=== PATIENT | female | born 1995 | race African-American/Black ===

== ENCOUNTER 2017-09-17 12:28 | Emergency (ER) | payer MEDICAID ==
[2017-09-17 16:11] LABS: URINE BLOOD (Dip) POC Negative (NEGATIVE); URINE GLUCOSE (Dip) POC Negative (NEGATIVE); URINE KETONES (Dip) POC Negative (NEGATIVE); URINE LEUKOCYTE EST (Dip) POC Negative (NEGATIVE); URINE NITRITE (Dip) POC Negative (NEGATIVE); URINE TOTAL PROTEIN POC Negative (NEGATIVE)
[2017-09-17 16:11] LABS: URINE PH (Dip) POC 8.5 (5.0-8.5)
== END 2017-09-17 17:04 | disposition home or self-care (01) ==
LOC: FTE 12:28
DX: K52.9 Noninfective gastroenteritis and colitis, unspecified (principal)
CPT/HCPCS: 81003; 81025; 99283

== ENCOUNTER 2017-10-01 00:32 | Emergency (ER) | payer MEDICAID ==
[2017-10-01] MEDS: ONDANSETRON (ODT) 4 MG TAB ODT (01:36)
[2017-10-01 01:53] LABS: URINE PH (Dip) POC 6.5 (5.0-8.5)
[2017-10-01 01:53] LABS: URINE BLOOD (Dip) POC Negative (NEGATIVE); URINE GLUCOSE (Dip) POC Negative (NEGATIVE); URINE KETONES (Dip) POC 1+ (NEGATIVE); URINE LEUKOCYTE EST (Dip) POC Negative (NEGATIVE); URINE NITRITE (Dip) POC Negative (NEGATIVE); URINE TOTAL PROTEIN POC Trace (NEGATIVE)
== END 2017-10-01 03:57 | disposition home or self-care (01) ==
LOC: FTE 00:32
DX: R11.11 Vomiting without nausea (principal)
CPT/HCPCS: 81003; 81025; 99283

== ENCOUNTER 2017-12-14 10:11 | Emergency (ER) | payer SELFPAY, MEDICAID | END 2017-12-14 11:30 | disposition home or self-care (01) | LOC: FTE 10:11 | DX: Z48.02 Encounter for removal of sutures (principal) | CPT/HCPCS: 99281 ==

== ENCOUNTER 2018-06-19 10:16 | Emergency (ER) | payer SELFPAY ==
[2018-06-19 11:04] LABS: URINE BLOOD (Dip) POC 2+ (NEGATIVE); URINE GLUCOSE (Dip) POC Negative (NEGATIVE); URINE KETONES (Dip) POC 2+ (NEGATIVE); URINE LEUKOCYTE EST (Dip) POC Negative (NEGATIVE); URINE NITRITE (Dip) POC Negative (NEGATIVE); URINE TOTAL PROTEIN POC 1+ (NEGATIVE)
[2018-06-19 11:04] LABS: URINE PH (Dip) POC 6.5 (5.0-8.5)
[2018-06-19] MEDS: ONDANSETRON (ODT) 4 MG TAB ODT (11:07)
[2018-06-19] MEDS: ACETAMINOPHEN 500 MG TAB PO (11:07)
[2018-06-19] MEDS: SOD CHLORIDE 0.9% 1,000 ML IV (11:07)
[2018-06-19] MEDS: IBUPROFEN 600 MG TAB PO (11:07)
== END 2018-06-19 12:26 | disposition home or self-care (01) ==
LOC: FTE 10:16
DX: J10.1 Influenza due to other identified influenza virus with other respiratory manifestations (principal)
CPT/HCPCS: 71045; 81003; 81025; 87400; 96360; 99284-25

== ENCOUNTER 2018-08-20 19:39 | Emergency (ER) | payer SELFPAY ==
[2018-08-20 22:30] LABS: ADD MAN DIFF? NO
[2018-08-20 22:37] LABS: BASOPHILS % 0.4 % (0.0-2.0); EOSINOPHILS % 0.4 % (0.0-7.0); HEMOGLOBIN 11.2 g/dl (12.0-16.0); LYMPHOCYTES # 2.2 10^3/ul (0.8-2.9); LYMPHOCYTES % 29.9 % (15.0-51.0); MEAN CORPUSCULAR HEMOGLOBIN 30.4 pg (29.0-33.0); MEAN CORPUSCULAR HGB CONC 32.9 g/dl (32.0-37.0); MEAN CORPUSCULAR VOLUME 92.1 fl (82.0-101.0); MEAN PLATELET VOLUME 9.6 fl (7.4-10.4); MONOCYTE # 0.5 10^3/ul (0.3-0.9); MONOCYTES % 7.1 % (0.0-11.0); NEUTROPHIL # 4.7 10^3/ul (1.6-7.5); NEUTROPHILS % 61.9 % (39.0-77.0); PLATELET COUNT 371 10^3/UL (140-415); RED BLOOD COUNT 3.69 10^6/ul (4.20-5.40)
[2018-08-20 22:37] LABS: WHITE BLOOD COUNT 7.5 10^3/ul (4.8-10.8)
[2018-08-20 23:25] LABS: ADD UMIC YES; UR ASCORBIC ACID NEGATIVE (NEGATIVE); UR BACTERIA FEW /HPF (NONE SEEN); UR BILIRUBIN (Dip) NEGATIVE (NEGATIVE); UR BLOOD (Dip) NEGATIVE (NEGATIVE); UR CLARITY SLIGHTLY CLOUDY (CLEAR); UR COLOR YELLOW (YELLOW); UR GLUCOSE (Dip) NEGATIVE (NEGATIVE); UR KETONES (Dip) 2+ mg/dL (NEGATIVE); UR LEUKOCYTE ESTERASE (Dip) TRACE Leu/ul (NEGATIVE); UR MUCUS FEW /HPF (NONE SEEN); UR NITRITE (Dip) NEGATIVE (NEGATIVE); UR RBC 1 /HPF (0-5); UR SPECIFIC GRAVITY (Dip) 1.026 (1.003-1.030); UR SQUAMOUS EPITHELIAL CELL FEW /HPF (FEW); UR TOTAL PROTEIN (Dip) NEGATIVE (NEGATIVE); UR UROBILINOGEN (Dip) 2+ mg/dL (NEGATIVE); UR WBC 5 /HPF (0-5)
== END 2018-08-21 01:44 | disposition home or self-care (01) ==
LOC: FTE 08-21 01:44
DX: O26.891 Other specified pregnancy related conditions, first trimester (principal); R10.2 Pelvic and perineal pain; O99.331 Smoking (tobacco) complicating pregnancy, first trimester; F17.210 Nicotine dependence, cigarettes, uncomplicated; Z3A.01 Less than 8 weeks gestation of pregnancy
CPT/HCPCS: 36415; 76801; 76817; 81001; 84702; 85025; 86900; 86901; 99284-25